=== PATIENT | female | born 1985 | race Caucasian/White ===

== ENCOUNTER 2017-06-08 06:52 | Emergency (ER) | payer OTHER ==
[~2017-06-08] VITALS: Ht 165.1 cm; Wt 72.1 kg
[~2017-06-08 06:52] MED LIST: BCPILLS PO
[2017-06-08 06:58] VITALS: TEMP 36.8; Ht 165.1 cm; Wt 72.1 kg
[2017-06-08] MEDS ORDERED: MoRPHine SULFATE 2 MG/ML CARP ONE (07:04)
[2017-06-08] MEDS ORDERED: ONDANSETRON INJ 2 MG/ML 2 ML VIAL ONE (07:04)
[2017-06-08] MEDS ORDERED: SODIUM CHLORIDE 0.9% 1000ML 1,000 ML IV STA (07:05)
[2017-06-08] MEDS ORDERED: ONDANSETRON INJ 2 MG/ML 2 ML VIAL IV STA ×2 (07:05→07:45)
[2017-06-08] MEDS ORDERED: MoRPHine SULFATE 4 MG/ML 1 ML CARP\\VIAL IV STA ×2 (07:05→07:45)
[2017-06-08] MEDS ORDERED: MoRPHine SULFATE 2 MG/ML CARP IV STA (07:17)
[2017-06-08 07:24] LABS: BASO % 0.5 %; BASO ABS # 0.05 K/uL (0-0.2); COMPLETE YES; EOS % 0.9 %; HEMATOCRIT 37.7 % (37-47); IG% 0.3 %; LYMPH % 39.3 %; LYMPH ABS # 3.66 K/uL (1.2-3.4); MEAN CELL VOLUME 92.9 fL (80-100); MEAN CORPUSCULAR HEMOGLOBIN 29.6 pg (25-34); MEAN CORPUSCULAR HGB CONC 31.8 g/dl (32-36); MEAN PLATELET VOLUME 9.9 fL (7.4-10.4); MONO % 6.5 %; NEUT % 52.5 %; PLATELET COUNT 334 K/uL (130-400); RED BLOOD COUNT 4.06 M/uL (4.2-5.4); WHITE BLOOD COUNT 9.32 K/uL (4.8-10.8)
[2017-06-08 07:35] LABS: ALT/SGPT 19 U/L (12-78); BLOOD UREA NITROGEN 13 mg/dl (7-18); BUN/CREATININE RATIO 11.6 (10-20); CALCIUM 8.8 mg/dl (8.5-10.1); CARBON DIOXIDE 23 mmol/L (21-32); CHLORIDE 106 mmol/L (98-107); CREATININE 1.11 mg/dl (0.60-1.20); GLUCOSE 137 mg/dl (70-99); POTASSIUM 3.2 mmol/L (3.5-5.1); SODIUM 140 mmol/L (136-145)
[2017-06-08 07:38] LABS: ALKALINE PHOSPHATASE 75 U/L (45-117); AST/SGOT 15 U/L (15-37)
--- NOTE | 2017-06-08 07:55 | DIAGNOSTIC IMAGING REPORT ---
ABDOMEN AND PELVIS CT WITHOUT CONTRAST CT DOSE: 859.74 mGy.cm HISTORY: EVALUATE FLANK PAIN/HEMATURIA TECHNIQUE: Multiaxial CT images of the abdomen and pelvis were performed without the use of intravenous and oral contrast according to the standard department stone protocol. A dose lowering technique was utilized adhering to the principles of ALARA. COMPARISON STUDY: None. FINDINGS: The lung bases are clear. No fractures within the visualized osseous structures. The unenhanced liver, gallbladder, spleen, adrenal glands, and pancreas are unremarkable. Multiple punctate bilateral renal calculi. Mild right perinephric and periureteral edema. There is a 1 mm obstructing stone within the distal right ureter best seen on image 140 immediately proximal to the ureterovesical junction. This results in mild right hydroureteronephrosis. Normal bladder. No left-sided hydronephrosis. Suboptimal evaluation for bowel pathology due to the lack of intravenous and oral contrast. No evidence for bowel obstruction. Mild thickening within the ascending colon and hepatic flexure of the colon. Normal appendix. IMPRESSION: 1. A 1 mm obstructing stone within the distal right ureter resulting and mild right hydroureteronephrosis. 2. Bilateral nephrolithiasis. 3. Mild thickening of the proximal colon. This is consistent with a nonspecific colitis and favors an inflammatory or infectious process. 4. Normal appendix. Electronically signed by: Eliot Farias M.D. 06/08/2017 7:54 AM Dictated Date/Time: 06/08/2017 7:49 AM
[2017-06-08] MEDS ORDERED: KETOROLAC TROMETHAMINE 30 MG/ML VIAL IV STA (08:35)
[2017-06-08 09:23] LABS: URINE APPEARANCE TURBID (CLEAR); URINE BILIRUBIN NEG (NEG); URINE COLOR YELLOW; URINE EPITHELIAL CELL AUTO >30 /lpf (0-5); URINE NITRITE NEG (NEG); URINE SPECIFIC GRAVITY 1.031 (1.000-1.030); UROBILINOGEN NEG (NEG)
[2017-06-08 09:38] LABS: MANUAL MICROSCOPIC REQUIRED? NO; REVIEW REQ? YES
[2017-06-08] MEDS ORDERED: HYDR-5688 PO (09:51)
[2017-06-08 10:05] VITALS: BP 129/86; PULSE 50; O2SAT 100
--- NOTE | 2017-06-09 05:53 | EMERGENCY ROOM VISIT NOTE ---
ED Visit Note First contact with patient: 06:57 Chief Complaint: Right flank pain. History of Present Illness: Ms. Dumont is a 38-year-old white female who ambulates into the ED complaining of severe right flank pain. Historically patient has a history of nephrolithiasis with a possible passage of stone 2 years ago. Patient reports shortly after waking from sleep this morning she had an acute onset of right flank pain. She reports initially it's felt like a spasm but then became more intense and more sharp. This occurred approximately 2 hours before she arrived in the emergency department. Since then her pain has been constant. Currently she rates her discomfort 8/10. Her pain is minimally radiating around to the lateral aspect of the mid right quadrant. She has not identified any aggravating or alleviating factors related to the pain. Associated with her pain she's been nauseated and has had one episode of vomiting. She has not been able to take any medications for pain prior to arrival at the hospital. She denies any associated symptoms including fevers, chills, sweats, skin eruptions, skin color changes, upper respiratory tract symptoms, cough, wheezing , shortness of breath, abdominal pain, diarrhea, constipation, urinary symptoms , hematuria, vaginal bleeding, vaginal discharge, bowel and bladder dysfunction , genital paresthesias, lower extremity weakness/numbness/tingling. Review of Systems: As noted above in history of present illness. All body systems were reviewed and found to be negative as noted above. Past Medical History: As previously noted. Current Medications: control. Allergies to Medications: Nitrofurantoin Social History: Patient is currently employed; patient feels safe in her home environment; patient denies tobacco use. Physical Examination: Vital Signs: Date Time Temp Pulse Resp B/P (MAP) Pulse Ox O2 Delivery O2 Flow Rate FiO2 06/08/17 10:05 50 129/86 100 Room Air 06/08/17 08:01 48 20 125/86 96 Room Air 06/08/17 07:50 48 20 126/92 98 06/08/17 06:58 36.8 59 20 136/95 95 Room Air GENERAL: 31-year-old female in moderate distress due to pain, nontoxic-appearing , afebrile and hemodynamically stable. NEUROLOGICAL: Awake, alert and oriented to person, place and time. Answering questions appropriately and following commands. Normal gait. Good hand eye coordination. SKIN: Warm, dry and pink. No soft tissue eruptions or trauma noted. HEENT: Atraumatic and normocephalic. PERRLA. Sclera white and conjunctiva pink. No drainage from naris. Oral cavity moist and pink. Pharynx is nonerythematous or edematous. Speech normal. No lymphadenopathy. Trachea midline. No jugular venous distention. BACK: No tenderness over the bony spine. No CVA tenderness. THORAX: Lungs sounds are clear to auscultation and equal bilaterally with symmetrical chest wall. No wheezing, rales or rhonchi. No crepitus, tenderness , subcutaneous air or deformities noted. HEART: Regular rate and rhythm. No gallops, rubs or murmurs are appreciated. ABDOMEN: Flat, soft and nontender. Positive bowel sounds in all quadrants. No guarding, rigidity or organomegaly. EXTREMITIES: Moves all extremities well on command and with purpose. All distal neurovascular statuses are intact and equal bilaterally. No calf tenderness or cords. ED Course: Patient is assessed as noted above. Patient's medication list was reviewed. Laboratory Testing: Test 06/08/17 07:00 06/08/17 08:46 Range/Units White Blood Count 9.32 4.8-10.8 K/uL Red Blood Count 4.06 4.2-5.4 M/uL Hemoglobin 12.0 12.0-16.0 g/dL Hematocrit 37.7 37-47 % Mean Corpuscular Volume 92.9 80-100 fL Mean Corpuscular Hemoglobin 29.6 25-34 pg Mean Corpuscular Hemoglobin Concent 31.8 32-36 g/dl Platelet Count 334 130-400 K/uL Mean Platelet Volume 9.9 7.4-10.4 fL Neutrophils (%) (Auto) 52.5 % Lymphocytes (%) (Auto) 39.3 % Monocytes (%) (Auto) 6.5 % Eosinophils (%) (Auto) 0.9 % Basophils (%) (Auto) 0.5 % Neutrophils # (Auto) 4.89 1.4-6.5 K/uL Lymphocytes # (Auto) 3.66 1.2-3.4 K/uL Monocytes # (Auto) 0.61 0.11-0.59 K/uL Eosinophils # (Auto) 0.08 0-0.5 K/uL Basophils # (Auto) 0.05 0-0.2 K/uL RDW Standard Deviation 48.4 36.4-46.3 fL RDW Coefficient of Variation 14.2 11.5-14.5 % Immature Granulocyte % (Auto) 0.3 % Immature Granulocyte # (Auto) 0.03 0.00-0.02 K/uL Sodium Level 140 136-145 mmol/L Potassium Level 3.2 3.5-5.1 mmol/L Chloride Level 106 98-107 mmol/L Carbon Dioxide Level 23 21-32 mmol/L Anion Gap 12.0 3-11 mmol/L Blood Urea Nitrogen 13 7-18 mg/dl Creatinine 1.11 0.60-1.20 mg/dl Est Creatinine Clear Calc Drug Dose 73.8 ml/min Estimated GFR () 77.2 Estimated GFR (Non- 66.6 BUN/Creatinine Ratio 11.6 10-20 Random Glucose 137 70-99 mg/dl Calcium Level 8.8 8.5-10.1 mg/dl Total Bilirubin 0.3 0.2-1 mg/dl Direct Bilirubin < 0.1 0-0.2 mg/dl Aspartate Amino Transf (AST/SGOT) 15 15-37 U/L Alanine Aminotransferase (ALT/SGPT) 19 12-78 U/L Alkaline Phosphatase 75 45-117 U/L Total Protein 7.3 6.4-8.2 gm/dl Albumin 3.3 3.4-5.0 gm/dl Lipase 200 73-393 U/L Urine Color YELLOW Urine Appearance TURBID CLEAR Urine pH 5.0 4.5-7.5 Urine Specific [place] 1.031 1.000-1.030 Urine Protein 1+ NEG Urine Glucose (UA) NEG NEG Urine Ketones TRACE NEG Urine Occult Blood TRACE NEG Urine Nitrite NEG NEG Urine Bilirubin NEG NEG Urine Urobilinogen NEG NEG Urine Leukocyte Esterase NEG NEG Urine WBC (Auto) 1-5 0-5 /hpf Urine RBC (Auto) 0-4 0-4 /hpf Urine Hyaline Casts (Auto) 10-30 0-5 /lpf Urine Epithelial Cells (Auto) >30 0-5 /lpf Urine Bacteria (Auto) NEG NEG Urine Crystals See comments NONE PRSENT Urine Test NEG NEG Noncontrast Abdominal/Pelvic CT: As reviewed by myself and read by the radiologist showing a 1 mm obstructing stone within the distal right ureter resulting in mild right hydroureter nephrosis, bilateral nephrolithiasis, mild thickening of the proximal colon, and a normal-appearing appendix. Patient was initially hydrated with normal saline and received 2 mg of morphine for pain and 4 mg of Zofran IV for nausea. Patient was reassessed multiple times during her stay in the emergency department. Patient received an additional 6 mg of morphine IV for pain, 30 mg of Toradol IV for pain and 4 mg of Zofran IV for nausea. Patient was educated about today's findings and instructed on her treatment plan ; she verbalized understanding and agreement with this plan. Clinical Impression: Ureter calculus. Decision-Making: Initially my differential diagnosis I considered ureter calculus, pyelonephritis, musculoskeletal injury, hepatitis, pancreatitis, appendicitis and other causes. Disposition: Patient discharged home in stable condition accompanied by her mother; prior to departure she was reassessed and subjectively reported she was feeling much better and rated her discomfort 2/10. Plan: Patient was placed in a sliding pain scale of ibuprofen, acetaminophen and [place] ; she was given appropriate narcotic precautions and her name was checked on the state database and no red flags were noted. Patient was encouraged to stay well-hydrated with increased clear fluids. Patient was encouraged to strain all urine urine and collect all stones for analysis. Patient was encouraged to follow-up with her urologist, Dr. Choi. Patient was encouraged return ED for uncontrolled pain, worsening nausea/ vomiting, fevers, urinary symptoms or any new/concerning symptoms.
== END 2017-06-08 10:15 | disposition home or self-care (01) ==
LOC: C.EDB 06:53 → C.EDA 10:15
DX: N20.1 Calculus of ureter (principal); Z87.442 Personal history of urinary calculi